=== PATIENT | female | born 1995 ===

== ENCOUNTER 2018-03-18 06:51 | Emergency (ER) | payer OTHER ==
[2018-03-18] MEDS ORDERED: Sodium Chloride 0.9% 1,000 ML IV STA (07:46)
[2018-03-18 08:12] LABS: BASO % 0.4 % (0.0-2.0); EOS % 0.2 % (0.0-4.0); HEMOGLOBIN 12.7 g/dL (12.0-16.0); LYMPH # 1.3 K/uL (1.0-4.3); LYMPH % 15.2 % (20.0-40.0); MEAN CELL VOLUME 81.7 fl (81.0-99.0); MEAN CORPUSCULAR HEMOGLOBIN 27.5 pg (27.0-31.0); MEAN CORPUSCULAR HGB CONC 33.7 g/dL (33.0-37.0); MEAN PLATELET VOLUME 8.2 fl (7.2-11.7); MONO # 0.6 K/uL (0.0-0.8); MONO % 7.8 % (0.0-10.0); NEUT # 6.3 K/uL (1.8-7.0); NEUT % 76.4 % (50.0-75.0); NRBC % 0.1 % (0.0-0.0); RBC 4.61 Mil/uL (3.80-5.20); RED CELL DISTRIBUTION WIDTH 14.2 % (11.5-14.5); WHITE BLOOD COUNT 8.3 K/uL (4.8-10.8)
[2018-03-18 08:13] LABS: SQUAMOUS EPITHIAL 2 /hpf (0-5); URINE BACTERIA RARE (<OCC); URINE BILIRUBIN NEGATIVE (NEGATIVE); URINE BLOOD SMALL (NEGATIVE); URINE CLARITY CLOUDY (Clear); URINE COLOR AMBER (YELLOW); URINE GLUCOSE (UA) NEG (Normal); URINE LEUKOCYTE ESTERASE SMALL Leu/uL (Negative); URINE PROTEIN NEGATIVE (NEGATIVE)
[2018-03-18 08:26] LABS: HCG,QUALITATIVE URINE NEGATIVE (NEGATIVE)
--- NOTE | 2018-03-18 08:35 | ED PDOC ---
HPI: Abdomen Time Seen by Provider: 03/18/18 07:11 Chief Complaint (Nursing): Abdominal Pain Chief Complaint (Provider): Abdominal Pain History Per: Patient History/Exam Limitations: no limitations Onset/Duration Of Symptoms: Hrs (x5 ) Additional Complaint(s): Kym Tracy is a 22 y/o female with no significant past medical history presents to the ED complaining of abdominal pain with associated shoulder pain, onset earlier this morning at 03:00. Patient reports that she was sleeping and was woken up by the pain. She states that she had similar abdominal pain before : she doesn't eat for while, her stomach starts hurting, she vomits, and then feels better. This time however, vomiting brought no relief and she noticed blood in her vomit. She also states that she has been experiencing some shortness of breath. She reports eating late in the day yesterday at around 16: 00 and then again at 21:00 and fell asleep 2 hours later. She denies any urinary problems, fever, or chills. Her last normal menstrual period was x2 weeks ago but notes that her periods are irregular and that she is on control. PMD: None provided Past Medical History Reviewed: Historical Data, Nursing Documentation, Vital Signs Vital Signs: Last Vital Signs Temp 98.5 F 03/18/18 07:11 Pulse 91 H 03/18/18 07:11 Resp 16 03/18/18 07:11 BP 130/70 03/18/18 07:11 Pulse Ox 98 03/18/18 09:53 - Medical History PMH: No Chronic Diseases - Surgical History Surgical History: No Surg Hx - Family History Family History: States: Diabetes (mother) - Social History Current smoker - smoking cessation education provided: No Alcohol: None Drugs: Denies - Home Medications Home Medications: Ambulatory Orders Medication Instructions Recorded No Known Home Med 03/18/18 - Allergies Allergies/Adverse Reactions: Allergies Allergy/AdvReac Type Severity Reaction Status Date / Time No Known Allergies Allergy Verified 03/18/18 07:06 Review of Systems ROS Statement: Except As Marked, All Systems Reviewed And Found Negative Constitutional: Negative for: Fever, Chills Respiratory: Positive for: Shortness of Breath Gastrointestinal: Positive for: Vomiting (1 episode with blood), Abdominal Pain Genitourinary Female: Negative for: Dysuria, Frequency, Incontinence Physical Exam - Reviewed Nursing Documentation Reviewed: Yes Vital Signs Reviewed: Yes - Physical Exam Appears: Positive for: Non-toxic, No Acute Distress Head Exam: Positive for: ATRAUMATIC, NORMOCEPHALIC Skin: Positive for: Normal Color, Warm, Dry Eye Exam: Positive for: EOMI, Normal appearance, PERRL Neck: Positive for: Normal, Painless ROM, Supple Cardiovascular/Chest: Positive for: Regular Rate, Rhythm. Negative for: Murmur Respiratory: Positive for: CNT, Normal Breath Sounds Gastrointestinal/Abdominal: Positive for: Tenderness (Epigastric and RUQ tenderness), Other (Positive Contreras's sign) Extremity: Positive for: Normal ROM. Negative for: Pedal Edema - Laboratory Results Result Diagrams: 03/18/18 07:59 03/18/18 07:59 - ECG O2 Sat by Pulse Oximetry: 98 (RA) Pulse Ox Interpretation: Normal Medical Decision Making Medical Decision Making: Time:07:44 Initial Impression: Abdominal pain r/o gastritis, cholecystitis and UTI Initial Plan: --CMP --Lipase --ED urine dipstick --CBC with differential --Sodium Chloride 0.9% 1,000 ml IV 1,000 mls/hr --Pepcid 20 mg IVP --Tylenol 975 mg PO --Urinalysis --US - Abdomen complete Time: 09:45 US FINDINGS: LIVER: Measures 18.9 cm. Normal echogenicity of the liver parenchyma. No mass. No intrahepatic bile duct dilatation. GALLBLADDER: Cholelithiasis is identified layering in the dependent portion of the liver. COMMON BILE DUCT: Measures 5.1 mm. No stones. No dilatation. PANCREAS: The tail of the pancreas is obscured by overlying bowel gas with remainder unremarkable. RIGHT KIDNEY: Measures 11.1cm. Normal echogenicity. No calculus, mass, or hydronephrosis. LEFT KIDNEY: Measures 11.9cm. Normal echogenicity. No calculus, mass, or hydronephrosis. SPLEEN: Normal in size and contour. No mass. AORTA: No aneurysmal dilatation. IVC: Unremarkable. OTHER FINDINGS: None. IMPRESSION: There is partial imaging of the pancreas. Cholelithiasis is identified with a positive sonographic Contreras's sign reported. No pericholecystic fluid collection or prominent mural thickening. Normal caliber CBD. Clinically correlate further for possible acute cholecystitis. ----- Scribe Attestation: Documented by Timo Scott, acting as a scribe for Cindy Bishop MD. Provider Scribe Attestation: All medical record entries made by the Scribe were at my direction and personally dictated by me. I have reviewed the chart and agree that the record accurately reflects my personal performance of the history, physical exam, medical decision making, and the department course for this patient. I have also personally directed, reviewed, and agree with the discharge instructions and disposition. 10.30a - seen by surgery and admitted for cholecystitis Disposition - Clinical Impression Clinical Impression: Cholecystitis - Disposition Disposition: Transfer of Care Disposition Time: 10:30 Condition: FAIR Forms: [employer] (Japanese) - Pt Status Changed To: Hospital Disposition Of: Inpatient - Admit Certification Admit to Inpatient:: After my assessment, the patient will require hospitalization for at least two midnights. This is because of the severity of symptoms shown, intensity of services needed, and/or the medical risk in this patient being treated as an outpatient. - POA Present On Arrival: None
[2018-03-18 08:40] LABS: ALB/GLOB RATIO 1.2 (1.0-2.1); ALT/SGPT 77 U/L (9-52); AST/SGOT 150 U/L (14-36); BLOOD UREA NITROGEN 8 mg/dl (7-17); CALCIUM 9.1 mg/dL (8.4-10.2); GFR AFRICAN-AMERICAN > 60; GFR NON-AFRICAN AMERICAN > 60; LIPASE 146 U/L (23-300)
--- NOTE | 2018-03-18 09:47 | US ---
HISTORY: ruq tenderness, contreras's COMPARISON: None. TECHNIQUE: Sonographic evaluation of the abdomen. FINDINGS: LIVER: Measures 18.9 cm. Normal echogenicity of the liver parenchyma. No mass. No intrahepatic bile duct dilatation. GALLBLADDER: Cholelithiasis is identified layering in the dependent portion of the liver. COMMON BILE DUCT: Measures 5.1 mm. No stones. No dilatation. PANCREAS: The tail of the pancreas is obscured by overlying bowel gas with remainder unremarkable. RIGHT KIDNEY: Measures 11.1cm. Normal echogenicity. No calculus, mass, or hydronephrosis. LEFT KIDNEY: Measures 11.9cm. Normal echogenicity. No calculus, mass, or hydronephrosis. SPLEEN: Normal in size and contour. No mass. AORTA: No aneurysmal dilatation. IVC: Unremarkable. OTHER FINDINGS: None. IMPRESSION: There is partial imaging of the pancreas. Cholelithiasis is identified with a positive sonographic Contreras's sign reported. No pericholecystic fluid collection or prominent mural thickening. Normal caliber CBD. Clinically correlate further for possible acute cholecystitis.
--- NOTE | 2018-03-18 10:58 | CP.PCM.HP ---
History of Present Illness - History of Present Illness History of Present Illness: 22 yo F w no PMH presenting with epigastric and RUQ abdominal pain since 3am this morning. Pt states the pain started around 3am, waking her up in the middle of the night. She describes it as a sharp pain located in the epigastric and RUQ abdomen and radiating to the Right shoulder. She had associated nausea and vomited 1x, gastric contents with small amount of blood. Pt states she ate potato salad last night around 9/10pm and is unsure if that precipitated the pain. She notes that she had a similar episode of this pain and nausea about 2 months ago that resolved after about 8hours. Pt denies any diarrhea/constipation, fevers/chills, SOB or chest pains. PMH: none PSH: none No meds NKDA Pt was seen in the ED. Vitals stable and WNL. Labs significant for elevated liver enzymes. Ultrasound was done which showed gallstones and a positive Contreras 's sign. Present on Admission - Present on Admission Any Indicators Present on Admission: No Review of Systems - Review of Systems All systems: reviewed and no additional remarkable complaints except Past Patient History - Past Social History Alcohol: None Drugs: Denies - PSYCHIATRIC Hx Substance Use: No Meds Allergies/Adverse Reactions: Allergies Allergy/AdvReac Type Severity Reaction Status Date / Time No Known Allergies Allergy Verified 03/18/18 07:06 Physical Exam - Constitutional Appears: Well, No Acute Distress - Head Exam Head Exam: ATRAUMATIC, NORMAL INSPECTION, NORMOCEPHALIC - Eye Exam Eye Exam: Normal appearance - Respiratory Exam Respiratory Exam: NORMAL BREATHING PATTERN. absent: Respiratory Distress - Cardiovascular Exam Cardiovascular Exam: REGULAR RHYTHM - GI/Abdominal Exam GI & Abdominal Exam: Guarding, Soft, Tenderness (RUQ TTP, + Contreras's ). absent : Distended, Firm, Hernia, Rebound, Rigid - Neurological Exam Neurological exam: Alert, Oriented x3 - Psychiatric Exam Psychiatric exam: Normal Affect, Normal Mood - Skin Skin Exam: Dry, Intact Results - Vital Signs Recent Vital Signs: Last Vital Signs Temp 98.5 F 03/18/18 07:11 Pulse 91 H 03/18/18 07:11 Resp 16 03/18/18 07:11 BP 130/70 03/18/18 07:11 Pulse Ox 98 03/18/18 10:46 - Labs Result Diagrams: 03/18/18 07:59 03/18/18 07:59 Labs: Laboratory Results - last 24 hr 03/18/1818 03/18/18 07:59 07:59 07:59 WBC 8.3 RBC 4.61 Hgb 12.7 Hct 37.7 MCV 81.7 MCH 27.5 MCHC 33.7 RDW 14.2 Plt Count 265 MPV 8.2 Neut % (Auto) 76.4 H Lymph % (Auto) 15.2 L [place] % (Auto) 7.8 Eos % (Auto) 0.2 Baso % (Auto) 0.4 Neut # (Auto) 6.3 Lymph # (Auto) 1.3 [place] # (Auto) 0.6 Eos # (Auto) 0.0 Baso # (Auto) 0.0 Sodium 136 Potassium 4.4 Chloride 105 Carbon Dioxide 22 Anion Gap 13 BUN 8 Creatinine 0.6 L Est GFR ( Amer) > 60 Est GFR (Non-Af Amer) > 60 Random Glucose 116 H Calcium 9.1 Total Bilirubin 1.1 AST 150 H ALT 77 H Alkaline Phosphatase 85 Total Protein 7.3 Albumin 4.0 Globulin 3.3 Albumin/Globulin Ratio 1.2 Lipase 146 Urine Color Liz Urine Clarity Cloudy Urine pH 5.0 Ur Specific [place] 1.026 Urine Protein Negative Urine Glucose (UA) Neg Urine Ketones Negative Urine Blood Small Urine Nitrate Negative Urine Bilirubin Negative Urine Urobilinogen 4.0 H Ur Leukocyte Esterase Small Urine RBC (Auto) 5 H Urine Microscopic WBC 3 Ur Squamous Epith Cells 2 Urine Bacteria Rare Urine HCG, Qual Negative Assessment & Plan - Assessment and Plan (Free Text) Assessment: 22yo F with symptomatic cholelithiasis -Discussed options for elective vs. inpatient cholecystectomy, pt states she prefers to have surgery now and does not want to risk having this pain again -Plan for Lap marilou tomorrow 8am -May have clear liquids today -NPO after midnight -Preop labs in AM -Pain control and anti-emetics prn DW Dr. Vineet Clark PGY4 Decision To Admit - Pt Status Changed To: Hospital Disposition Of: Inpatient - Admit Certification Admit to Inpatient:: After my assessment, the patient will require hospitalization for at least two midnights. This is because of the severity of symptoms shown, intensity of services needed, and/or the medical risk in this patient being treated as an outpatient. - . Bed Request Type: Med/Surg Admitting Physician: Álvaro Manley
[2018-03-18 14:56] VITALS: BP 125/80; PULSE 75; RESP 16; TEMP 98.1; O2SAT 100
[2018-03-18] MEDS ORDERED: Sodium Chloride 0.9% 1,000 ML IV SCH (20:00)
== END 2018-03-18 14:57 | disposition home or self-care (01) ==
LOC: H.ER 06:51 → H.ERHOLD 10:44 → UNDOADMIN 10:44 → UNDODISIN 14:57
DX: K81.9 Cholecystitis, unspecified (principal)
CPT/HCPCS: 76700; 80053; 81003; 81025; 83690; 84703; 85025; 87086; 96361; 96374; 96375; 99284; J2270; J2405; J7030

== ENCOUNTER 2018-03-20 15:56 | Inpatient (IN) | payer OTHER ==
--- NOTE | 2018-03-20 16:12 | ED PDOC ---
HPI: Abdomen Time Seen by Provider: 03/20/18 16:09 Chief Complaint (Nursing): Abdominal Pain Chief Complaint (Provider): abd pain History Per: Patient Additional Complaint(s): 22 year old presents with upper abdominal pain, nausea and vomiting x 3 days. Patient was seen in ED 2 days ago and was diagnosed with gallstones. She was instructed to follow up with Dr. Manley as outpatient but today she developed worsening pain and persistent vomiting prompting ED visit. Patient denies any fever or chills. PMD: none Past Medical History Reviewed: Historical Data, Nursing Documentation, Vital Signs Vital Signs: Last Vital Signs Temp 98.6 F 03/20/18 17:46 Pulse 91 H 03/20/18 17:46 Resp 16 03/20/18 17:46 BP 127/78 03/20/18 17:46 Pulse Ox 100 03/20/18 17:46 - Medical History PMH: No Chronic Diseases - Surgical History Surgical History: No Surg Hx - Family History Family History: States: Diabetes (mother) - Living Arrangements Living Arrangements: With Family - Social History Current smoker - smoking cessation education provided: No Alcohol: None Drugs: Denies - Home Medications Home Medications: Ambulatory Orders Medication Instructions Recorded No Known Home Med 03/18/18 - Allergies Allergies/Adverse Reactions: Allergies Allergy/AdvReac Type Severity Reaction Status Date / Time No Known Allergies Allergy Verified 03/18/18 07:06 Review of Systems ROS Statement: Except As Marked, All Systems Reviewed And Found Negative Constitutional: Negative for: Fever, Chills Cardiovascular: Negative for: Chest Pain Respiratory: Negative for: Cough Gastrointestinal: Positive for: Nausea, Vomiting, Abdominal Pain. Negative for : Diarrhea, Constipation, Melena, Hematochezia, Hematemesis, Rectal Pain Genitourinary Female: Negative for: Dysuria Physical Exam - Reviewed Nursing Documentation Reviewed: Yes Vital Signs Reviewed: Yes - Physical Exam Appears: Positive for: Well, Non-toxic, No Acute Distress Skin: Positive for: Normal Color. Negative for: Rash Eye Exam: Positive for: Normal appearance Cardiovascular/Chest: Positive for: Regular Rate, Rhythm Respiratory: Positive for: Normal Breath Sounds Gastrointestinal/Abdominal: Positive for: Tenderness (tenderness RUQ, epigastric , LUQ, (+) dunn's sign ). Negative for: Distended, Guarding, Rebound Back: Negative for: L CVA Tenderness, R CVA Tenderness Extremity: Positive for: Normal ROM Neurologic/Psych: Positive for: Alert, Oriented - Laboratory Results Result Diagrams: 03/20/18 16:45 03/20/18 16:45 Urine POC: Negative Urine dip results: Positive for: Blood (large). Negative for: Leukocyte Esterase, Nitrate, Ketones, Glucose, Bilirubin, Protein - ECG Interpretation Of ECG: Normal sinus rhythm 60 beats per minute, no acute changes, reviewed by PA and ED attending O2 Sat by Pulse Oximetry: 100 Pulse Ox Interpretation: Normal - Other Rad bedside chest X-Ray: Interpreted by Me, Viewed By Me X-Ray Interpretation: poor inspiratory effort, no acute finding Medical Decision Making Medical Decision Makin22 year old with abdominal and vomiting Plan: CBC CMP Blood culture Lipase IVF IV zofran IV toradol PT/PTT CXR EKG Case was d/w vice president of development, Dr. Dale. She states to admit patient to Dr. Manley's service. Patient is NPO after midnight. She is aware of and agrees with admission. Patient states the Toradol did not provide adequate pain relief , 4 mg IV morphine given. Disposition - Clinical Impression Clinical Impression: Cholecystitis - Patient ED Disposition Is Patient to be Admitted: Yes - Disposition Disposition Time: 16:47 Condition: FAIR - Pt Status Changed To: Hospital Disposition Of: Inpatient - Admit Certification Admit to Inpatient:: After my assessment, the patient will require hospitalization for at least two midnights. This is because of the severity of symptoms shown, intensity of services needed, and/or the medical risk in this patient being treated as an outpatient. - POA Present On Arrival: None Results - Lab Results Lab Results: 03/20/18 03/20/18 03/20/18 16:45 16:45 16:45 WBC 5.7 RBC 5.09 Hgb 13.7 Hct 41.4 MCV 81.3 MCH 27.0 MCHC 33.2 RDW 14.4 Plt Count 327 MPV 8.4 Neut % (Auto) 56.2 Lymph % (Auto) 33.9 [place] % (Auto) 9.0 Eos % (Auto) 0.5 Baso % (Auto) 0.4 Neut # (Auto) 3.2 Lymph # (Auto) 1.9 [place] # (Auto) 0.5 Eos # (Auto) 0.0 Baso # (Auto) 0.0 PT 12.0 INR 1.1 APTT 29.8 Sodium 141 Potassium 4.1 Chloride 101 Carbon Dioxide 26 Anion Gap 18 BUN 8 Creatinine 0.6 L Est GFR ( Amer) > 60 Est GFR (Non-Af Amer) > 60 Random Glucose 94 Calcium 9.9 Total Bilirubin 1.0 AST 74 H D ALT 85 H Alkaline Phosphatase 102 Total Protein 8.3 H Albumin 4.5 Globulin 3.8 Albumin/Globulin Ratio 1.2 Lipase 173
[2018-03-20] MEDS ORDERED: Sodium Chloride 0.9% 1,000 ML IV STA (16:13)
[2018-03-20 16:51] LABS: BASO % 0.4 % (0.0-2.0); EOS % 0.5 % (0.0-4.0); HEMOGLOBIN 13.7 g/dL (12.0-16.0); LYMPH # 1.9 K/uL (1.0-4.3); LYMPH % 33.9 % (20.0-40.0); MEAN CELL VOLUME 81.3 fl (81.0-99.0); MEAN CORPUSCULAR HGB CONC 33.2 g/dL (33.0-37.0); MEAN PLATELET VOLUME 8.4 fl (7.2-11.7); MONO # 0.5 K/uL (0.0-0.8); NEUT # 3.2 K/uL (1.8-7.0); NEUT % 56.2 % (50.0-75.0); NRBC % 0.2 % (0.0-0.0); RBC 5.09 Mil/uL (3.80-5.20); RED CELL DISTRIBUTION WIDTH 14.4 % (11.5-14.5); WHITE BLOOD COUNT 5.7 K/uL (4.8-10.8)
[2018-03-20 17:02] LABS: INR 1.1 (0.9-1.2); PARTIAL THROMBOPLASTIN TIME 29.8 Seconds (25.6-37.1)
[2018-03-20 17:16] LABS: ALB/GLOB RATIO 1.2 (1.0-2.1); ALBUMIN 4.5 g/dL (3.5-5.0); ALT/SGPT 85 U/L (9-52); AST/SGOT 74 U/L (14-36); BLOOD UREA NITROGEN 8 mg/dl (7-17); CALCIUM 9.9 mg/dL (8.4-10.2); GFR AFRICAN-AMERICAN > 60; GFR NON-AFRICAN AMERICAN > 60; LIPASE 173 U/L (23-300)
--- NOTE | 2018-03-20 18:14 | CP.PCM.HP ---
History of Present Illness - History of Present Illness History of Present Illness: General surgery H & P for Dr. Patrick Dale, PGY-2 Pt S & E at bedside at 1730 22F w/PMH sig for biliary colic admitted for RUQ abdominal pain x 1 day. Pt reports sudden onset of sharp, severe, throbbing RUQ pain that radites to right shower after eating plantains, eggs, and salami this AM. Pt reports pain alleviated by pain medication. Pt reports 2 previous episodes of similar, last one on 03/18/18. Pt was admitted at that time, but due to techincal difficulties in the OR, was unable to have cholecystectomy and was subsequently discharged after pain was controlled. Admits to decreased appetite due to pain , nausea, emesis x 1 (nb, nb, food stuff), diarrhea, chills. Denies Fevers, dizziness, GATES, changes in urinary habits, constipation, chest pain, SOB, weakness, other complaints. Pt had previous U/S on 03/18 showing gallstones, + Contreras's sign. In ED this time , pt afebrile, no leukocytosis, LFTs slightly elevated, but lower than last admission, T bili WNL. PMH: biliary colic, cholelithiasis PSH: Denies All: NKDA SH: Denies ETOH, tobacco or illicit drug use Present on Admission - Present on Admission Any Indicators Present on Admission: No History of DVT/PE: No History of Uncontrolled Diabetes: No Urinary Catheter: No Decubitus Ulcer Present: No Review of Systems - Review of Systems All systems: reviewed and no additional remarkable complaints except - Constitutional Constitutional: Chills. absent: Fever, Headache, Weakness - EENT Eyes: absent: Change in Vision Ears: absent: Dizziness Nose/Mouth/Throat: absent: Sore Throat - Cardiovascular Cardiovascular: absent: Chest Pain, Palpitations - Respiratory Respiratory: absent: Cough - Gastrointestinal Gastrointestinal: Abdominal Pain, Change in Bowel Habits, Change in Stool Character, Diarrhea, Nausea, Vomiting. absent: Constipation, Hematemesis, Hematochezia, Melena - Genitourinary Genitourinary: absent: Change in Urinary Stream, Dysuria, Flank Pain, Hematuria - Musculoskeletal Musculoskeletal: Radiating Pain into Limb (right shoulder). absent: Back Pain, Numbness, Stiffness, Tingling - Integumentary Integumentary: absent: Rash - Neurological Neurological: absent: Dizziness, Weakness - Psychiatric Psychiatric: Change in Appetite (decreased) - Endocrine Endocrine: absent: Fatigue Past Patient History - Past Social History Alcohol: None Drugs: Denies - CARDIAC Hx Cardiac Disorders: No - PULMONARY Hx Respiratory Disorders: No - NEUROLOGICAL Hx Neurological Disorder: No - HEENT Hx HEENT Problems: No - RENAL Hx Chronic Kidney Disease: No - ENDOCRINE/METABOLIC Hx Endocrine Disorders: No - HEMATOLOGICAL/ONCOLOGICAL Hx Blood Disorders: No - INTEGUMENTARY Hx Dermatological Problems: No - MUSCULOSKELETAL/RHEUMATOLOGICAL Hx Musculoskeletal Disorders: No - GENITOURINARY/GYNECOLOGICAL Hx Genitourinary Disorders: No - PSYCHIATRIC Hx Psychophysiologic Disorder: No - SURGICAL HISTORY Hx Surgeries: No - ANESTHESIA Hx Anesthesia: No Meds Allergies/Adverse Reactions: Allergies Allergy/AdvReac Type Severity Reaction Status Date / Time No Known Allergies Allergy Verified 03/18/18 07:06 Physical Exam - Constitutional Appears: Non-toxic, No Acute Distress - Head Exam Head Exam: ATRAUMATIC, NORMAL INSPECTION, NORMOCEPHALIC - Eye Exam Eye Exam: EOMI, Normal appearance - ENT Exam ENT Exam: Mucous Membranes Moist, Normal Exam - Neck Exam Neck exam: Positive for: Full Rom, Normal Inspection - Respiratory Exam Respiratory Exam: Clear to Auscultation Bilateral, NORMAL BREATHING PATTERN. absent: Rales, Rhonchi, Wheezes, Respiratory Distress - Cardiovascular Exam Cardiovascular Exam: REGULAR RHYTHM, +S1, +S2 - GI/Abdominal Exam GI & Abdominal Exam: Normal Bowel Sounds, Soft, Tenderness (RUQ). absent: Distended (obese), Firm, Guarding, Hernia, Rebound, Rigid - Extremities Exam Extremities exam: Positive for: normal inspection. Negative for: tenderness - Back Exam Back exam: NORMAL INSPECTION - Neurological Exam Neurological exam: Alert, CN II-XII Intact, Oriented x3 - Psychiatric Exam Psychiatric exam: Normal Affect, Normal Mood - Skin Skin Exam: Dry, Intact, Normal Color Results - Vital Signs Recent Vital Signs: Last Vital Signs Temp 98.6 F 03/20/18 17:46 Pulse 91 H 03/20/18 17:46 Resp 16 03/20/18 17:46 BP 127/78 03/20/18 17:46 Pulse Ox 100 03/20/18 17:46 - Labs Result Diagrams: 03/20/18 16:45 03/20/18 16:45 Labs: Laboratory Results - last 24 hr 03/20/18 03/20/18 03/20/18 16:45 16:45 16:45 WBC 5.7 RBC 5.09 Hgb 13.7 Hct 41.4 MCV 81.3 MCH 27.0 MCHC 33.2 RDW 14.4 Plt Count 327 MPV 8.4 Neut % (Auto) 56.2 Lymph % (Auto) 33.9 [place] % (Auto) 9.0 Eos % (Auto) 0.5 Baso % (Auto) 0.4 Neut # (Auto) 3.2 Lymph # (Auto) 1.9 [place] # (Auto) 0.5 Eos # (Auto) 0.0 Baso # (Auto) 0.0 PT 12.0 INR 1.1 APTT 29.8 Sodium 141 Potassium 4.1 Chloride 101 Carbon Dioxide 26 Anion Gap 18 BUN 8 Creatinine 0.6 L Est GFR ( Amer) > 60 Est GFR (Non-Af Amer) > 60 Random Glucose 94 Calcium 9.9 Total Bilirubin 1.0 AST 74 H D ALT 85 H Alkaline Phosphatase 102 Total Protein 8.3 H Albumin 4.5 Globulin 3.8 Albumin/Globulin Ratio 1.2 Lipase 173 Assessment & Plan - Assessment and Plan (Free Text) Assessment: 22F w/PMH sig for biliary colic & cholelithiasis admitted for RUQ abdominal pain due to symptomatic cholelithiasis Plan: Admit to med surg VS Q8H heart healthy diet until MN Then NPO past MN Plan for OR in AM Consent in chart Pain control Anti-emetic PRN IVF at MN FU EKG FU CXR FU AM labs Full code GI/DVT ppx DW attending [place], PGY-2 - Date & Time Date: 03/20/18 Time: 18:10 Decision To Admit - Pt Status Changed To: Hospital Disposition Of: Inpatient - Admit Certification Admit to Inpatient:: After my assessment, the patient will require hospitalization for at least two midnights. This is because of the severity of symptoms shown, intensity of services needed, and/or the medical risk in this patient being treated as an outpatient. - . Bed Request Type: Med/Surg Admitting Physician: Álvaro Manley
[2018-03-21 06:36] LABS: MEAN CELL VOLUME 82.4 fl (81.0-99.0); MEAN CORPUSCULAR HEMOGLOBIN 27.9 pg (27.0-31.0); MEAN CORPUSCULAR HGB CONC 33.9 g/dL (33.0-37.0); RBC 4.31 Mil/uL (3.80-5.20); RED CELL DISTRIBUTION WIDTH 14.4 % (11.5-14.5); WHITE BLOOD COUNT 3.9 K/uL (4.8-10.8)
[2018-03-21] MEDS ORDERED: HYDROmorphone 0.5 mg/0.5 ml ISec IVP PRN ×4 (06:45→16:35)
[2018-03-21 07:05] LABS: ALB/GLOB RATIO 1.1 (1.0-2.1); ALBUMIN 3.5 g/dL (3.5-5.0); ALT/SGPT 272 U/L (9-52); AST/SGOT 366 U/L (14-36); BLOOD UREA NITROGEN 6 mg/dl (7-17); CALCIUM 9.2 mg/dL (8.4-10.2); GFR AFRICAN-AMERICAN > 60; GFR NON-AFRICAN AMERICAN > 60
[2018-03-21] MEDS ORDERED: Lactated Ringer's 1,000 ML IV SCH ×3 (07:15→16:35)
--- NOTE | 2018-03-21 08:56 | RAD ---
HISTORY: clearance COMPARISON: No prior. FINDINGS: LUNGS: No focal airspace opacity. PLEURA: No significant pleural effusion identified, no pneumothorax apparent. CARDIOVASCULAR: Normal. OSSEOUS STRUCTURES: No significant abnormalities. VISUALIZED UPPER ABDOMEN: Normal. OTHER FINDINGS: None. IMPRESSION: No focal airspace opacity.
--- NOTE | 2018-03-21 09:34 | CARD ---
APPROVED REPORT EKG Measurement Heart [id number] <Conclusion> Normal sinus rhythm Voltage criteria for left ventricular hypertrophy Early repolarization in high lateral leads Abnormal ECG
[2018-03-21] MEDS ORDERED: Propofol 10 mg/ml Inj (20 ML) ONE (12:00)
[2018-03-21] MEDS ORDERED: Lidocaine 4% (Laryng-O-Jet) Kit MM ONE (12:01)
[2018-03-21] MEDS ORDERED: Succinylcholine 200 mg/10 ml Inj IV ONE (12:01)
[2018-03-21] MEDS ORDERED: Rocuronium 10 mg/ml (5 ml) ONE (12:01)
[2018-03-21] MEDS ORDERED: Lactated Ringer's 1,000 ML IV ONE ×2 (12:30→13:45)
[2018-03-21] MEDS ORDERED: Midazolam 2 MG/2 ML VIAL ONE (12:32)
[2018-03-21] MEDS ORDERED: ceFAZolin IV 1 gm in Dextrose 2 GM/100 ML BAG IVPB ONE (12:46)
[2018-03-21] MEDS ORDERED: Dexamethasone 4 mg/1 ml ONE (12:47)
[2018-03-21] MEDS ORDERED: Sevoflurane - Inhalation Anesthetic Liq (250 ml) ONE (12:55)
[2018-03-21] MEDS ORDERED: Bupivacaine 0.25% Inj(30mL) IJ ONE (13:59)
[2018-03-21] MEDS ORDERED: Oxycodone/Acetaminophen 5/325 mg Tab PO PRN ×2 (14:10→16:35)
--- NOTE | 2018-03-21 14:24 | PCM.SURG1 ---
Surgeon's Initial Post Op Note - Surgeon's Notes Surgeon: Dr. Manley Clinic Director: Dr. Clark PGY4; Dr. Mendez PGY3 Type of Anesthesia: General Endo Anesthesia Administered By: Miguel Pre-Operative Diagnosis: Symptomatic Cholelithiasis Operative Findings: same Post-Operative Diagnosis: same Operation Performed: Laparoscopic Cholecystectomy Specimen/Specimens Removed: Gallbladder Estimated Blood Loss: EBL {In ML}: 5 Blood Products Given: N/A Drains Used: No Drains Post-Op Condition: Good Date of Surgery/Procedure: 03/21/18 Time of Surgery/Procedure: 14:24
--- NOTE | 2018-03-21 14:25 | PCM.SURG1 ---
Surgeon's Initial Post Op Note - Surgeon's Notes Surgeon: Dr. Manley Cad Designer Drafter: Tray Mendez PGY3, Himanshu PGY4 Type of Anesthesia: General Endo, Local Pre-Operative Diagnosis: symptomatic cholelithiasis Operative Findings: gallstones Post-Operative Diagnosis: Same Operation Performed: Lap cholecystectomy Specimen/Specimens Removed: gallbladder Estimated Blood Loss: EBL {In ML}: 10 Blood Products Given: N/A Drains Used: No Drains Post-Op Condition: Good Date of Surgery/Procedure: 03/21/18 Time of Surgery/Procedure: 14:24
[2018-03-21] MEDS ORDERED: Neostigmine 1:1000 (1 mg/ml) Inj ONE (14:45)
--- NOTE | 2018-03-22 07:58 | CP.PCM.DIS ---
Provider - Provider Date of Admission: 03/20/18 16:49 Attending physician: Álvaro Gomez MD Time Spent in preparation of Discharge (in minutes): 45 Hospital Course - Lab Results Lab Results: Micro Results 03/20/18 16:45 Blood-Venous S.aureus & Coag-Neg Staph PNA FISH - Final 03/20/18 16:45 Blood-Venous Blood Culture - Preliminary Gram Positive Cocci 03/20/18 16:45 Blood-Venous Gram Stain - Final Most Recent Lab Values WBC 3.9 K/uL (4.8-10.8) L 03/21/18 05:20 RBC 4.31 Mil/uL (3.80-5.20) 03/21/18 05:20 Hgb 12.0 g/dL (12.0-16.0) 03/21/18 05:20 Hct 35.5 % (34.0-47.0) 03/21/18 05:20 MCV 82.4 fl (81.0-99.0) 03/21/18 05:20 MCH 27.9 pg (27.0-31.0) 03/21/18 05:20 MCHC 33.9 g/dL (33.0-37.0) 03/21/18 05:20 RDW 14.4 % (11.5-14.5) 03/21/18 05:20 Plt Count 249 K/uL (130-400) 03/21/18 05:20 MPV 8.4 fl (7.2-11.7) 03/20/18 16:45 Neut % (Auto) 56.2 % (50.0-75.0) 03/20/18 16:45 Lymph % (Auto) 33.9 % (20.0-40.0) 03/20/18 16:45 [place] % (Auto) 9.0 % (0.0-10.0) 03/20/18 16:45 Eos % (Auto) 0.5 % (0.0-4.0) 03/20/18 16:45 Baso % (Auto) 0.4 % (0.0-2.0) 03/20/18 16:45 Neut # (Auto) 3.2 K/uL (1.8-7.0) 03/20/18 16:45 Lymph # (Auto) 1.9 K/uL (1.0-4.3) 03/20/18 16:45 [place] # (Auto) 0.5 K/uL (0.0-0.8) 03/20/18 16:45 Eos # (Auto) 0.0 K/uL (0.0-0.7) 03/20/18 16:45 Baso # (Auto) 0.0 K/uL (0.0-0.2) 03/20/18 16:45 PT 12.0 Seconds (9.8-13.1) 03/20/18 16:45 INR 1.1 (0.9-1.2) 03/20/18 16:45 APTT 29.8 Seconds (25.6-37.1) 03/20/18 16:45 Sodium 139 mmol/l (132-148) 03/21/18 05:20 Potassium 4.5 MMOL/L (3.6-5.0) 03/21/18 05:20 Chloride 104 mmol/L (98-107) 03/21/18 05:20 Carbon Dioxide 26 mmol/L (22-30) 03/21/18 05:20 Anion Gap 14 (10-20) 03/21/18 05:20 BUN 6 mg/dl (7-17) L 03/21/18 05:20 Creatinine 0.7 mg/dl (0.7-1.2) 03/21/18 05:20 Est GFR ( Amer) > 60 03/21/18 05:20 Est GFR (Non-Af Amer) > 60 03/21/18 05:20 Random Glucose 81 mg/dL (65-105) 03/21/18 05:20 Calcium 9.2 mg/dL (8.4-10.2) 03/21/18 05:20 Total Bilirubin 0.8 mg/dl (0.2-1.3) 03/21/18 05:20 AST 366 U/L (14-36) H D 03/21/18 05:20 ALT 272 U/L (9-52) H D 03/21/18 05:20 Alkaline Phosphatase 125 U/L (38-126) 03/21/18 05:20 Total Protein 6.6 G/DL (6.3-8.2) 03/21/18 05:20 Albumin 3.5 g/dL (3.5-5.0) D 03/21/18 05:20 Globulin 3.1 gm/dL (2.2-3.9) 03/21/18 05:20 Albumin/Globulin Ratio 1.1 (1.0-2.1) 03/21/18 05:20 Lipase 173 U/L (23-300) 03/20/18 16:45 - Hospital Course Hospital Course: 22 F w no sig PMH came with abd pain. Pt was seen by us prior to this admission and came back with persistent RUQ pain. Pt underwent lap marilou for symptomatic cholelithiasis. TOlerted it well. Following day tolerated diet, voided, ambulated, pain controlled. Pt is insturcted to follow up with Dr. gomez. Discharge Exam - Head Exam Head Exam: ATRAUMATIC, NORMAL INSPECTION, NORMOCEPHALIC - Eye Exam Eye Exam: EOMI, Normal appearance, PERRL Pupil Exam: NORMAL ACCOMODATION, PERRL - ENT Exam ENT Exam: Normal Exam - Respiratory Exam Respiratory Exam: NORMAL BREATHING PATTERN - Cardiovascular Exam Cardiovascular Exam: REGULAR RHYTHM - GI/Abdominal Exam GI & Abdominal Exam: Tenderness Additional comments: Incision C/D/I - Exam Exam: NORMAL INSPECTION - Extremities Exam Extremities exam: normal inspection - Back Exam Back exam: NORMAL INSPECTION - Neurological Exam Neurological exam: Alert, CN II-XII Intact, Normal Gait, Oriented x3, Reflexes Normal - Psychiatric Exam Psychiatric exam: Normal Affect, Normal Mood - Skin Skin Exam: Dry, Intact, Normal Color, Warm Discharge Plan - Discharge Medications Prescriptions: traMADol [Ultram] 50 mg PO TID #15 tab - Follow Up Plan Condition: FAIR Disposition: HOME/ ROUTINE Instructions: Gallstones Additional Instructions: Follow up at Dr. Gomez's office in 1-2 weeks. OK to take shower tomorrow. Keep glue on until they fall off naturally Take ultram for pain as needed. 1 pill every 8 hrs Low fat diet No heavy lifting for 4-6 weeks or until cleared by Dr. Gomez Referrals: Álvaro Gomez MD [Staff Provider] -
[2018-03-22 08:18] VITALS: BP 109/71; PULSE 68; RESP 20; TEMP 97.7; O2SAT 99
--- NOTE | 2018-03-25 08:28 | OP ---
PROCEDURE DATE: 03/21/18 PREOPERATIVE DIAGNOSES: Symptomatic cholelithiasis and chronic cholecystitis. POSTOPERATIVE DIAGNOSES: Symptomatic cholelithiasis and chronic cholecystitis. SURGEON: Álvaro Garcia MD VEHICLE TECHNICIAN: Loli Pinzon DO; Tray Brar DO PROCEDURE: Laparoscopic cholecystectomy. INDICATIONS: This is a 22-year-old female who developed right upper quadrant pain, nausea and vomiting, was found to have cholelithiasis on ultrasound and laparoscopic cholecystectomy was elected. SURGEON: Álvaro Manley MD DESCRIPTION OF PROCEDURE: The patient was placed on the operating table in the supine position. General anesthesia was induced. A time-out was completed verifying correct patient, procedure, site, positioning, and special equipment prior to the procedure. A nasogastric tube was placed. The abdomen was prepped and draped in the usual sterile fashion. A vertical infraumbilical incision was made in a natural skin crease. The fascia was elevated and the Veress needle was inserted. Proper position was confirmed by aspiration and saline meniscus test. The abdomen was insufflated with carbon dioxide to a pressure of 15 mmHg. The patient tolerated the insufflation well. A 10 mm trochar was then inserted into the umbilicus. The laparoscope was inserted and the abdomen inspected. Additional trochars were then inserted in the following locations. A 5 mm trochar in the epigastrium, two 5 mm trochars along the right costal margin. The abdomen was inspected and no abnormalities were found. The table was placed in reverse Trendelenburg position with the right side up. Adhesions between the gallbladder and the omentum were lysed sharply. The dome of the gallbladder was grasped with an atraumatic grasper, passed to the lateral port and retracted over the dome of the liver. The infundibulum was then grasped with an atraumatic grasper through the midclavicular port and retracted towards the right lower quadrant. This maneuver exposed Calot triangle. The peritoneum overlying the gallbladder infundibulum was then dissected using the [place], and cystic duct and cystic artery were identified and circumferentially dissected. The cystic duct and cystic artery were then triply clipped and divided close to the gallbladder. The gallbladder was then dissected from its peritoneal attachments by electrocautery. Hemostasis was obtained and the gallbladder and contained stones were removed using an endoscopic retrieval bag, placed through the subxiphoid port. The gallbladder was passed off the table as a specimen. The gallbladder fossa was copiously irrigated with saline and hemostasis was obtained. There was no evidence of bleeding from the gallbladder fossa or cystic artery or leakage of the bile from the cystic duct stump. Secondary trochars were removed. The laparoscope was withdrawn, and the umbilical trochar removed. The abdomen was allowed to collapse. The fascia of the 10 mm trocar site was closed using a [id number] 0 Vicryl suture. The skin was then closed with subcuticular 4-0 Monocryl and Dermabond was applied overtop. The NG tube was removed. The patient tolerated the procedure well. The patient was extubated and taken to the postanesthesia care unit in stable condition. Loli Clark DO [facility]
== END 2018-03-22 09:45 | disposition home or self-care (01) | DRG 419 ==
LOC: H.ER 15:56 → H.ERHOLD 16:49 → H.PEDS 18:24
PROVIDERS: ADMIT Surgery; ATTEND Surgery
PROC: 0FT44ZZ Resection of Gallbladder, Percutaneous Endoscopic Approach (ICD-10-PCS; principal; 2018-03-21 11:30)
DX: K80.10 Calculus of gallbladder with chronic cholecystitis without obstruction (principal)